=== PATIENT | female | born 1935 | race Asian ===

== ENCOUNTER 2021-04-13 20:15 | Inpatient (IN) | payer MEDICARE, OTHER ==
[~2021-04-13] VITALS: Ht 165.1 cm; Wt 61.0 kg
[2021-04-13] MEDS ORDERED: PANTOPRAZOLE SODIUM 40 MG VIAL IV ONE (20:30)
[2021-04-13] MEDS ORDERED: MORPHINE SULFATE 2 MG/1 ML DISP.SYRIN IV ONE (20:30)
[2021-04-13] MEDS ORDERED: ONDANSETRON 4 MG/2 ML VIAL IV ONE (20:30)
[2021-04-13] MEDS ORDERED: ONDANSETRON 4 MG/2 ML VIAL ONE (21:21)
[2021-04-13] MEDS ORDERED: MORPHINE SULFATE 2 MG/1 ML DISP.SYRIN ONE (21:22)
[2021-04-13] MEDS ORDERED: PANTOPRAZOLE SODIUM 40 MG VIAL ONE (21:22)
[2021-04-13 21:41] LABS: HEMATOCRIT 30.7 % (31.2-41.9); MEAN CORPUSCULAR HEMOGLOBIN 29.1 uug (24.7-32.8); MEAN CORPUSCULAR VOLUME 84.4 fL (75.5-95.3); PLATELET COUNT (AUTO) 115 K/uL (179-408)
[2021-04-13 22:01] LABS: *BILIRUBIN,URIN NEGATIVE (NEGATIVE); *BLOOD, URINE NEGATIVE (NEGATIVE); *CLARITY,URINE CLEAR (CLEAR); *COLOR,URINE YELLOW (YELLOW); *KETONES,URINE NEGATIVE (NEGATIVE); *UROBILINOGEN,URINE 0.2 E.U./dl (NORMAL); LEUKOCYTE ESTERASE ,URINE NEGATIVE (NEGATIVE); NITRITE, URINE NEGATIVE (NEGATIVE); UGLUCOSE NEGATIVE (NEGATIVE)
[2021-04-13 22:19] LABS: ALANINE AMINOTRANSFERASE 20 U/L (14-59); ALKALINE PHOSPHATASE 65 U/L (50-136); ASPARTATE AMINOTRANSFERASE 18 U/L (15-37); BILIRUBIN,DIRECT 0.2 mg/dL (0.0-0.2); BILIRUBIN,TOTAL 0.4 mg/dL (0.2-1.0); CARBON DIOXIDE 27 mmol/L (21-32); CHLORIDE 106 mmol/L (98-107); CREATININE 0.9 mg/dL (0.6-1.3); GLUCOSE 120 mg/dL (74-106); LIPASE 480 U/L (73-393); TOTAL PROTEIN, SERUM 6.3 g/dL (6.4-8.2); UREA NITROGEN, BLOOD 12 mg/dL (7-18)
[2021-04-13 22:24] LABS: POTASSIUM 2.8 mmol/L (3.5-5.1)
[2021-04-13] MEDS ORDERED: POTASSIUM BICARBONATE/CIT AC 25 MEQ TABLET.EFF PO ONE (22:45)
[2021-04-13] MEDS ORDERED: POTASSIUM BICARBONATE/CIT AC 25 MEQ TABLET.EFF ONE (23:20)
[2021-04-14] MEDS ORDERED: ONDANSETRON 4 MG/2 ML VIAL IV PRN (01:00)
[2021-04-14] MEDS ORDERED: NITROGLYCERIN 0.4 MG/TAB BOTTLE SL PRN (01:00)
[2021-04-14] MEDS ORDERED: IV D5/ 0.9% NACL 1,000 ML IV ONE (01:00)
[2021-04-14] MEDS ORDERED: MAG HYDROX/AL HYDROX/SIMETH 30 ML LIQUID UDC PO PRN (01:00)
[2021-04-14] MEDS ORDERED: ACETAMINOPHEN 325 MG TABLET PO PRN (01:00)
[2021-04-14] MEDS ORDERED: hydrALAZINE HCL 20 MG/1 ML VIAL IV PRN ×2 (01:00→05:15)
[2021-04-14] MEDS ORDERED: DOCUSATE SODIUM 100 MG CAPSULE PO PRN (01:00)
[2021-04-14 01:43] VITALS: BP 180/71
[2021-04-14] MEDS ORDERED: METO50TA16 PO (03:10)
[2021-04-14] MEDS ORDERED: LISI10TA29 PO (03:10)
[2021-04-14] MEDS ORDERED: ATOR20TA PO (03:10)
[2021-04-14] MEDS ORDERED: QUET25TA PO (03:10)
[2021-04-14] MEDS ORDERED: TENO250T PO (03:10)
[2021-04-14 04:00] VITALS: BP 164/54
[2021-04-14 07:17] LABS: HEMATOCRIT 31.7 % (31.2-41.9); MEAN CORPUSCULAR HEMOGLOBIN 28.8 uug (24.7-32.8); MEAN CORPUSCULAR VOLUME 83.2 fL (75.5-95.3); PLATELET COUNT (AUTO) 137 K/uL (179-408)
[2021-04-14 07:43] LABS: CREATININE 0.9 mg/dL (0.6-1.3); POTASSIUM 3.6 mmol/L (3.5-5.1)
[2021-04-14] MEDS: POTASSIUM CHLORIDE 50 ML IV SCH ×4 (07:43→12:09)
[2021-04-14 07:59] LABS: BILIRUBIN,DIRECT 0.2 mg/dL (0.0-0.2); BILIRUBIN,TOTAL 0.5 mg/dL (0.2-1.0); MAGNESIUM 2.5 mg/dL (1.8-2.4); PHOSPHOROUS 3.5 mg/dL (2.5-4.9); TOTAL PROTEIN, SERUM 6.4 g/dL (6.4-8.2)
[2021-04-14 08:04] LABS: THYROID STIMULATING HORMONE 6.215 mIU/mL (0.358-3.740)
[2021-04-14] MEDS: QUETIAPINE FUMARATE 25 MG TABLET PO PRN (08:30)
[2021-04-14] MEDS: ATORVASTATIN 20 MG TABLET PO SCH (08:30)
[2021-04-14] MEDS: ASPIRIN 81 MG TAB.CHEW PO SCH (08:30)
[2021-04-14] MEDS: METOPROLOL TARTRATE 50 MG TABLET PO SCH ×2 (08:31→17:10)
[2021-04-14] MEDS ORDERED: TENOFOVIR DISOPROXIL FUMARATE 300 MG PO SCH (09:00)
[2021-04-14] MEDS ORDERED: LISINOPRIL 10 MG TABLET PO SCH (09:00)
[2021-04-14 11:58] VITALS: BP 167/59
[2021-04-14 16:00] VITALS: BP 166/72
[2021-04-14 20:37] VITALS: BP 148/73
[2021-04-14] MEDS ORDERED: SIMVASTATIN 20 MG TABLET PO SCH (21:00)
[2021-04-15 04:35] VITALS: BP 164/60
[2021-04-15] MEDS: LEVOTHYROXINE SODIUM 25 MCG TABLET PO SCH (06:00)
[2021-04-15 06:48] LABS: HEMATOCRIT 32.5 % (31.2-41.9); MEAN CORPUSCULAR HEMOGLOBIN 29.2 uug (24.7-32.8); MEAN CORPUSCULAR VOLUME 84.8 fL (75.5-95.3); PLATELET COUNT (AUTO) 142 K/uL (179-408)
[2021-04-15 07:15] LABS: CREATININE 0.9 mg/dL (0.6-1.3); MAGNESIUM 2.6 mg/dL (1.8-2.4); PHOSPHOROUS 3.8 mg/dL (2.5-4.9); POTASSIUM 4.1 mmol/L (3.5-5.1)
[2021-04-15] MEDS: ASPIRIN 81 MG TAB.CHEW PO SCH (09:58)
[2021-04-15] MEDS: ATORVASTATIN 20 MG TABLET PO SCH (09:58)
[2021-04-15] MEDS: LISINOPRIL 20 MG TABLET PO SCH (09:58)
[2021-04-15] MEDS: METOPROLOL TARTRATE 50 MG TABLET PO SCH ×2 (09:58→16:55)
[2021-04-15] MEDS: QUETIAPINE FUMARATE 25 MG TABLET PO PRN (10:58)
[2021-04-15 11:40] VITALS: BP 142/54
[2021-04-15 16:00] VITALS: BP 157/70
[2021-04-15 20:47] VITALS: BP 137/48
[2021-04-16] MEDS: MORPHINE SULFATE 2 MG/1 ML DISP.SYRIN IV PRN ×2 (00:11→22:01)
[2021-04-16] MEDS: LEVOTHYROXINE SODIUM 25 MCG TABLET PO SCH (06:15)
[2021-04-16 06:38] VITALS: BP 101/51
[2021-04-16] MEDS: LISINOPRIL 20 MG TABLET PO SCH (08:31)
[2021-04-16] MEDS: ATORVASTATIN 20 MG TABLET PO SCH (08:31)
[2021-04-16] MEDS: ASPIRIN 81 MG TAB.CHEW PO SCH (08:31)
[2021-04-16] MEDS: METOPROLOL TARTRATE 50 MG TABLET PO SCH ×2 (08:32→17:00)
[2021-04-16 11:00] VITALS: BP 147/58
[2021-04-16 15:34] VITALS: BP 151/56
[2021-04-16] MEDS: QUETIAPINE FUMARATE 25 MG TABLET PO PRN (16:56)
[2021-04-16 20:00] VITALS: BP 157/55
[2021-04-17 04:00] VITALS: BP 148/68
[2021-04-17] MEDS: LEVOTHYROXINE SODIUM 25 MCG TABLET PO SCH (06:21)
[2021-04-17 06:33] LABS: HEMATOCRIT 31.1 % (31.2-41.9); MEAN CORPUSCULAR HEMOGLOBIN 29.1 uug (24.7-32.8); MEAN CORPUSCULAR VOLUME 85.2 fL (75.5-95.3); PLATELET COUNT (AUTO) 128 K/uL (179-408)
[2021-04-17 06:52] LABS: BILIRUBIN,TOTAL 0.7 mg/dL (0.2-1.0); CREATININE 0.8 mg/dL (0.6-1.3); MAGNESIUM 2.5 mg/dL (1.8-2.4); PHOSPHOROUS 4.1 mg/dL (2.5-4.9); TOTAL PROTEIN, SERUM 5.9 g/dL (6.4-8.2)
[2021-04-17 08:00] VITALS: BP 122/68
[2021-04-17] MEDS: ASPIRIN 81 MG TAB.CHEW PO SCH (09:41)
[2021-04-17] MEDS: LISINOPRIL 20 MG TABLET PO SCH (09:42)
[2021-04-17] MEDS: METOPROLOL TARTRATE 50 MG TABLET PO SCH ×2 (09:42→17:28)
[2021-04-17] MEDS: ATORVASTATIN 20 MG TABLET PO SCH (09:42)
[2021-04-17 14:10] LABS: *OCCULT BLOOD STOOL NEGATIVE (NEGATIVE)
[2021-04-17] MEDS: QUETIAPINE FUMARATE 25 MG TABLET PO PRN (14:23)
[2021-04-17] MEDS ORDERED: QUET25TA PO (16:10)
[2021-04-17] MEDS ORDERED: LISI20TA30 PO (16:10)
[2021-04-17] MEDS ORDERED: ASPI81TA31 PO (16:10)
[2021-04-17] MEDS ORDERED: METO50TA16 PO (16:10)
[2021-04-17] MEDS ORDERED: LEVO25TA9 PO (16:10)
[2021-04-17 17:28] VITALS: BP 130/67
== END 2021-04-17 22:20 | disposition home health service (06) | DRG 438 ==
LOC: ER 20:17 → EDBD 20:17 → TELE3 04-14 01:14 → MEDSURG3 04-15 10:11
PROVIDERS: ADMIT Registered Nurse; ATTEND Internal Medicine
PROC: 05HD33Z Insertion of Infusion Device into Right Cephalic Vein, Percutaneous Approach (ICD-10-PCS; principal; 2021-04-14)
DX: K85.90 Acute pancreatitis without necrosis or infection, unspecified (principal); I50.31 Acute diastolic (congestive) heart failure; B18.1 Chronic viral hepatitis B without delta-agent; D61.818 Other pancytopenia; K76.6 Portal hypertension; I67.89 Other cerebrovascular disease; E87.6 Hypokalemia; R07.9 Chest pain, unspecified; I11.0 Hypertensive heart disease with heart failure; Z95.0 Presence of cardiac pacemaker; Z20.822 Contact with and (suspected) exposure to COVID-19; K83.8 Other specified diseases of biliary tract; F03.90 Unspecified dementia, unspecified severity, without behavioral disturbance, psychotic disturbance, mood disturbance, and anxiety; Z79.899 Other long term (current) drug therapy; Z79.82 Long term (current) use of aspirin; N28.1 Cyst of kidney, acquired; K74.60 Unspecified cirrhosis of liver; K57.30 Diverticulosis of large intestine without perforation or abscess without bleeding; Z82.49 Family history of ischemic heart disease and other diseases of the circulatory system; Z90.49 Acquired absence of other specified parts of digestive tract; I44.0 Atrioventricular block, first degree
CPT/HCPCS: 36415; 70450; 71045; 82378; 83550; 83690; 83735; 84100; 84443; 84484; 85025; 85730; 93005; 93307; 97161; A4663; C9113; G0378; J0360; J2270; J2405; J3480; J7030; J7042